=== PATIENT | male | born 1995 | race Caucasian/White ===

== ENCOUNTER 2016-08-19 01:57 | Emergency (ER) | payer OTHER ==
[~2016-08-19] VITALS: Ht 180.3 cm; Wt 84.4 kg
[2016-08-19 03:50] VITALS: BP 122/67
== END 2016-08-19 03:50 | disposition home or self-care (01) ==
LOC: ED 01:57
DX: H10.213 Acute toxic conjunctivitis, bilateral (principal)
CPT/HCPCS: J7050; V2632

== ENCOUNTER 2016-08-21 19:31 | Emergency (ER) | payer OTHER ==
[2016-08-21 19:44] VITALS: BP 132/71
== END 2016-08-21 23:16 | disposition home or self-care (01) ==
LOC: ED 19:31
DX: S05.8X2A Other injuries of left eye and orbit, initial encounter (principal); S05.8X1A Other injuries of right eye and orbit, initial encounter; H10.213 Acute toxic conjunctivitis, bilateral; T50.995A Adverse effect of other drugs, medicaments and biological substances, initial encounter; X58.XXXA Exposure to other specified factors, initial encounter; Y93.G3 Activity, cooking and baking; Y99.8 Other external cause status; Y92.000 Kitchen of unspecified non-institutional (private) residence as the place of occurrence of the external cause
CPT/HCPCS: J1885; Q0162